=== PATIENT | male | born 1935 | race Caucasian/White ===

== ENCOUNTER 2017-03-05 19:55 | Inpatient (IN) ==
[2017-03-05] MEDS ORDERED: Ondansetron 4 MG/2 ML VIAL IVP ONE (20:21)
--- NOTE | 2017-03-05 20:21 | Emergency Department Note ---
Disposition Clinical Impression: Acute pancreatitis Qualifiers: Pancreatitis type: unspecified pancreatitis type Acute pancreatitis complication: unspecified Qualified Code(s): K85.90 - Acute pancreatitis without necrosis or infection, unspecified Disposition: Admitted As Inpatient Condition: Fair Time of Disposition: 22:40 General Adult HPI - General Chief complaint: ED Abdominal Pain Stated complaint: N/V Time Seen by Provider: 03/05/17 20:02 Source: EMS Mode of arrival: EMS Limitations: no limitations Nursing Notes Reviewed: Yes Vital Signs Reviewed: Yes - History of Present Illness HPI Narrative: Patient is an 81-year-old male who presents to [facility] ED with a chief complaint of nausea and vomiting for the last week. States he has been unable to keep down any food but he has been able to keep down water. He has never had anything like this in the past. Denies any pain in his abdomen. No shortness of breath or fevers. Denies any chest pain or difficulty breathing. [facility] work. They noted what looked like pneumobilia which could be more secondary to reflux of air from the small intestine as well as air-fluid levels throughout the small bowel without any transition point consistent with some ileus. He had a lipase elevated over 500. Lab work otherwise unremarkable there. Onset (ago): week(s) Pain Severity: mild Consistency: constant Improves with: nothing Worsens with: nothing Associated symptoms: Reports: denies other symptoms, nausea/vomiting. Denies: chest pain, cough, fever/chills, headaches, shortness of breath Treatments Prior to Arrival: none - Related Data Home Medications Medication Instructions Recorded Confirmed Aspirin Enteric Coated [Aspirin EC] 81 mg PO DAILY 03/05/17 03/05/17 Atorvastatin [Lipitor] 40 mg PO HS 03/05/17 03/05/17 Bisoprolol Fumarate 5 mg PO DAILY 03/05/17 03/05/17 Diltiazem HCl [Cardizem] 60 mg PO TID 03/05/17 03/05/17 Donepezil [Aricept] 10 mg PO HS 03/05/17 03/05/17 Kelp 1 each PO DAILY 03/05/17 03/05/17 Lisinopril [Zestril] 10 mg PO DAILY 03/05/17 03/05/17 Multivitamin-Min/Iron/FA/Vit K 1 each PO DAILY 03/05/17 03/05/17 [Multi-Day Plus Minerals Tablet] [place]-3/Dha/Epa/Fish Oil [Fish Oil 1,000 mg PO TID 03/05/17 03/05/17 1,000 mg Softgel] Allergies Allergy/AdvReac Type Severity Reaction Status Date / Time No Known Allergies Allergy Verified 03/05/17 19:59 All systems ED: reviewed and negative except as stated. Past Medical History - Past Medical History Attestation: Yes The following information was validated with the patient. Source: patient Medical history: Reports: atrial fibrillation, coronary artery disease, dementia , hypertension, renal disease Surgical history: Reports: coronary bypass (CABG) Physical Exam - General Limitations: no limitations General appearance: alert, in no apparent distress - Head Head exam: atraumatic, normocephalic, normal inspection - Eye Eye exam: Present: normal appearance, PERRL, EOMI - ENT ENT exam: normal exam, normal oropharynx, mucous membranes moist - Neck Neck exam: Present: normal inspection, full ROM, trachea midline - Chest Chest inspection: Present: normal inspection, symmetric chest wall rise - Respiratory Respiratory exam: Present: normal lung sounds bilaterally - Cardiovascular Cardiovascular exam: Present: regular rate, normal rhythm, normal heart sounds - Abdominal Exam Abdominal exam: Present: soft, Non-Tender, normal bowel sounds. Absent: tenderness, distention, guarding, rebound, rigidity - Extremities Exam Extremities exam: Present: normal inspection, full ROM. Absent: tenderness, pedal edema - Back Exam Back exam: Present: normal inspection, full ROM. Absent: tenderness - Neurological Exam Neurological exam: Present: alert - Psychiatric Psychiatric exam: Present: normal affect, normal mood - Skin Skin exam: Present: warm, dry, intact, normal color Course Course Narrative: Patient seen and examined. Labs and imaging were done at the [place]. I did get LFTs here which were normal as well as a lactic acid which was normal. Elevated Cr though he does have hx of CKD stage 3. Patient's physical exam is inconsistent with any bowel obstruction or acute cholecystitis. His abdomen is soft and nontender. Does not seem to have a surgical abdomen. With his elevated lipase , we will go ahead and admit for acute pancreatitis. I spoke with hospitalist Dr. Phillip who has accepted patient for admission. Vital Signs Temperature 97.7 F 03/05/17 19:59 Pulse Rate 78 03/05/17 19:59 Respiratory Rate 18 03/05/17 19:59 Blood Pressure 114/63 03/05/17 19:59 O2 Sat by Pulse Oximetry 98 03/05/17 19:59 Temperature 97.7 F 03/05/17 19:59 Pulse Rate 68 03/05/17 21:46 Respiratory Rate 16 03/05/17 22:26 Blood Pressure 116/56 03/05/17 22:26 O2 Sat by Pulse Oximetry 99 03/05/17 21:46 Oxygen Delivery Oxygen Delivery Room Air Medical Decision Making - Medical Records Medical records reviewed: Yes I reviewed the patient's medical records. - Lab Data Lab results reviewed: Yes I reviewed the patient's lab results. Lab Results 03/05/17 03/05/17 Range/Units 20:40 21:15 Lactic Acid 1.2 (0.5-2.2) mmol/L Total Bilirubin 0.7 (0.2-1.2) mg/dL Direct Bilirubin 0.4 (0.0-0.5) mg/dL Indirect Bilirubin 0.3 (0.0-1.2) mg/dL AST 24 (5-34) Units/L ALT 27 (0-55) Units/L Alkaline Phosphatase 82 (38-126) Units/L Serum Total Protein 6.3 (6.0-8.3) g/dL Albumin 2.8 L (3.5-5.0) g/dL Globulin 3.5 (2.4-3.5) g/dL Albumin/Globulin Ratio 0.8 L (1.1-2.2) - Radiology Data Radiology results reviewed: Yes I reviewed the patient's radiology results.
[2017-03-05 21:35] LABS: Albumin 2.8 g/dL (3.5-5.0); Albumin/Globulin Ratio 0.8 (1.1-2.2); Bilirubin,Direct 0.4 mg/dL (0.0-0.5); Bilirubin,Indirect 0.3 mg/dL (0.0-1.2); Bilirubin,Total 0.7 mg/dL (0.2-1.2); Globulin 3.5 g/dL (2.4-3.5); Total Protein 6.3 g/dL (6.0-8.3)
[2017-03-05] MEDS ORDERED: 0.9 % Sodium Chloride 1,000 ML IVC ONE (21:39)
--- NOTE | 2017-03-05 22:43 | Emergency Department Note ---
START Narrative - START START: I examined this patient and my medical decision-making was reviewed with the Resident Physician. I agree with the documented findings, disposition and treatment plan as described except to the extent set forth below. Patient in ED with nausea vomiting. Onset a week ago. He is a transfer from the [place] because they did a CT of his abdomen which showed possible pneumobilia and a bowel obstruction. On evaluation here the patient is nontoxic. He is observed ambulating with no difficulties. His abdomen is soft nontender. Plan. The CT was reviewed by us. There is no distended loops of bowel. His abdomen is nontender. We do not believe he has a bowel obstruction. He will be admitted to medicine for observation.
[2017-03-05] MEDS ORDERED: Ondansetron 4 MG/2 ML VIAL IVP PRN (22:44)
[2017-03-05] MEDS ORDERED: Naloxone 0.4 MG/ML INJ IVP PRN (22:44)
--- NOTE | 2017-03-05 23:13 | Internal Med History&Physical ---
<Gary Nicole - Last Filed: 03/05/17 23:07> Date of Encounter: 03/05/17 Time of Encounter: 23:07 Assessment and Plan (1) Viral gastroenteritis Current visit: Yes Status: Acute Nausea vomiting and diarrhea 6 days. The patient reports being unable to keep any food or fluids down. Additionally he is hypotensive and has what appears to be an SHARONA. Likely has a diagnosis of Viral gastroenteritis. He will be worked up for viral gastroenteritis rule out pancreatitis as he has a nonsuspicious elevation of lipase per the [facility]. Amylase, lipase, CMP with serum mg, phosphorus, UA Normal saline at 200 mL per hour 2 L Protonix IV push daily Continuous telemetry Continuous pulse ox (2) Nausea vomiting and diarrhea Current visit: Yes Status: Acute Nausea vomiting and diarrhea 6 days. Patient remained nauseous as of today and upon admission to the emergency department. Zofran was provided and nausea subsided. However he has not had any episodes of diarrhea today. We will continue to monitor for diarrhea and consider pharmacological intervention at that time. Patient is currently hemodynamically stable Zofran IV push every 8 hours when necessary for nausea and vomiting 0.9 normal saline at 200 mL per hour to replace volume loss CMP pending (3) Acute pancreatitis Current visit: Yes Status: Suspected Nausea vomiting and diarrhea 6 days. The Medical [facility] reports a lipase of over 500. However, at this time it is not verifiable as it was unable [facility]. Also of note, according to the patient's history it appears this may be more viral gastroenteritis and pancreatitis. Stat amylase, lipase, CMP mg and phosphorus, CBC with differential Mg in the a.m. Qualifiers: Pancreatitis type: unspecified pancreatitis type Acute pancreatitis complication: unspecified Qualified Code(s): K85.90 - Acute pancreatitis without necrosis or infection, unspecified (4) Hypovolemia dehydration Current visit: Yes Status: Acute Patient appears hypovolemic. Nausea and vomiting diarrhea 6 days. Blood pressure is intermittently systolically less than 100. Rehydrate and 0.9 normal saline at 200 mL per hour 2 L (5) SHARONA (acute kidney injury) Current visit: Yes Status: Acute Patient is a history of CK disease stage III. Current creatinine 4.39. Unknown baseline, however he likely has an AK due to hypovolemia from 6 days of nausea vomiting diarrhea as he is unable to keep down any food or fluids. Rehydrated with 0.9 normal saline at a rate of 200 mL an hour X 2l. Recheck metabolic panel tomorrow as there is one currently pending Hold all blood pressure meds were now Retroperitoneal ultrasound in the morning (6) DVT prophylaxis Current visit: Yes Status: Acute Patient is a high risk for DVT due to immobility throughout hospital stay. Plan to place on heparin subcutaneous 5000 units Q12 hours Internal Medicine - H&P: HPI Chief complaint: N/V/D x 6 days Admitted From: Home Plans for Post Hospital Care: Home History of present illness: Mr. Downing is a 81 year old male with a past medical history of carotid artery stenosis, atrial fibrillation, dementia, CK D stage III, coronary artery disease who presents to [facility] from [facility] with a 6 day complaint of nausea vomiting and diarrhea. The patient states that he was unable to keep any food down for the last week. Additionally, he admits that his decrease in his water intake to the nausea and failure of additional vomiting. Was seen at the [facility] dated imaging with CT revealing pneumobilia with air in the gallbladder lumen. Adrenal gland spleen, kidneys, and grimace and gallbladder were unremarkable. There is noted to be distended loops of small bowel with air-fluid levels. Lab work at the [facility] reveals an AK with a creatinine 4.39. No baseline [facility] found [facility]. The [facility] reported a lipase of over 500 however the paperwork that was sent with the patient did not have a result for lipase. Upon review of systems the patient denies fever chest pain, shortness of breath, abdominal pain. He admits to only nausea vomiting and diarrhea. He is being admitted to [facility] for further workup and evaluation Past Med Surg Social Fam HX - Past Medical History Medical history: atrial fibrillation, coronary artery disease, dementia, hypertension, renal disease Psychiatric history: no psych history - Past Surgical History Surgical History: coronary bypass (CABG) - Social History Smoking Status: Former smoker Smokeless Tobacco Status: No Alcohol use: rarely Drug use: none - Family History Father Race: Family Member Ethnicity: Non- Living Status: Age at : 57 Cause of : Thrombosis Internal Medicine - H&P: Meds Aspirin Enteric Coated [Aspirin EC] 81 mg PO DAILY 03/05/17 [History] Atorvastatin [Lipitor] 40 mg PO HS 03/05/17 [History] Bisoprolol Fumarate 5 mg PO DAILY 03/05/17 [History] Diltiazem HCl [Cardizem] 60 mg PO TID 03/05/17 [History] Donepezil [Aricept] 10 mg PO HS 03/05/17 [History] Kelp 1 each PO DAILY 03/05/17 [History] Lisinopril [Zestril] 10 mg PO DAILY 03/05/17 [History] Multivitamin-Min/Iron/FA/Vit K [Multi-Day Plus Minerals Tablet] 1 each PO DAILY 03/05/17 [History] [place]-3/Dha/Epa/Fish Oil [Fish Oil 1,000 mg Softgel] 1,000 mg PO TID 03/05/17 [ History] 3 Allergy/AdvReac Type Severity Reaction Status Date / Time No Known Allergies Allergy Verified 03/05/17 19:59 All Systems PM: A 10-system review of systems was performed and is negative for pertinent findings except as documented above in the HPI. - Constitutional Constitutional: fatigue, weakness, no chills, no excessive sweating, no fever(s) , no falls, no malaise, no night sweats Additional comments: Admits to weakness and fatigue since becoming ill - EENT Eyes: no change in vision, no discharge, no pain, no photophobia Ears: no ear discharge, no ear pain, no tinnitus Nose, mouth and throat: no dysphagia, no nasal discharge, no neck pain, no sore throat - Cardiovascular Cardiovascular ROS IM: no chest pain, no diaphoresis, no dyspnea, no lightheadedness, no palpitations, no syncope - Respiratory Respiratory: no cough, no dyspnea, no wheezing, no excessive phlegm production - Gastrointestinal Gastrointestinal: diarrhea, dyspepsia, nausea, vomiting, no abdominal pain, no belching, no early satiety, no excessive flatus, no hematemesis, no hematochezia , no melena - Musculoskeletal Musculoskeletal ROS IM: no numbness, no tingling - Integumentary Integumentary IM: no rash, no unusual bruising - Neurological Neurological ROS: no confusion, no convulsions, no focal weakness, no numbness, no tingling, no tremor(s) - Hematologic/Lymphatic Hematologic/Lymphatic: no easy bruising - Constitutional Vitals: Temp Pulse Resp BP Pulse Ox 97.7 F 68 16 116/56 99 03/05/17 19:59 03/05/17 21:46 03/05/17 22:26 03/05/17 22:26 03/05/17 21:46 General appearance: Present: cooperative, A&O X 3, pleasant, no acute distress, answers questions appropriately - Head Head exam: Present: atraumatic, normocephalic - Eye Eye exam: Present: PERRL, conjuntiva pink, sclera anicteric Pupils: Present: PERRL - Neck Neck exam general surgery: Present: supple, trachea midline. Absent: lymphadenopathy - Respiratory Respiratory exam: Present: CTAB. Absent: accessory muscle use, rales, rhonchi, wheezes - Cardiovascular Cardiovascular exam: Present: RRR, +S1, +S2. Absent: diastolic murmur, gallop, rubs, systolic murmur - GI/Abdominal GI/Abdominal exam: Present: normal bowel sounds, soft, no peritoneal signs. Absent: bruit, distended, firm, guarding, hepatomegaly, rebound, tenderness Additional comments: No tenderness noted upon exam exam, no Rafa sign, or Brooke Cates sign noted - Extremities Exam Extremities exam: Present: warm, radial pulses palpable and symmetrical. Absent : calf tenderness, cyanotic, pedal edema - Neurological Exam Neurological exam: Present: CN II-XII intact, oriented X3, no focal deficits. Absent: pronater drift, facial droop, speech deficit - Skin Skin exam: Present: dry, intact <Ducu,Hunter - Last Filed: 03/06/17 06:11> Date of Encounter: 03/05/17 Internal Medicine - H&P: HPI History of present illness: Mr. Downing is a 81 year old male All Systems PM: A 10-system review of systems was performed and is negative for pertinent findings except as documented above in the HPI. - Constitutional Vitals: Temp Pulse Resp BP Pulse Ox 97.8 F 94 19 97/58 96 03/06/17 04:58 03/06/17 04:58 03/06/17 04:58 03/06/17 04:58 03/06/17 04:58 Internal Med - H&P Results - Labs CBC & Chem 7: 03/06/17 00:18 03/06/17 00:18 Labs: Short CBC 03/06/17 Range/Units 00:18 WBC 11.2 H (4.3-11.1) K/mcL Hgb 13.0 (12.9-16.9) g/dL Hct 37.5 (37.5-50.1) % Plt Count 181 (140-400) K/mcL Neutrophils # 8.1 (1.6-8.9) K/mcL BMP 03/06/17 00:18 Sodium 132 L Potassium 4.2 Chloride 97 L Carbon Dioxide 26 BUN 87 H Creatinine 3.93 H Glucose 82 Calcium 8.1 L Liver Function 03/06/17 Range/Units 00:18 Total Bilirubin 0.6 (0.2-1.2) mg/dL AST 22 (5-34) Units/L ALT 25 (0-55) Units/L Alkaline Phosphatase 75 (38-126) Units/L Albumin 2.6 L (3.5-5.0) g/dL - Attending Attestation I examined this patient and my medical decision-making was reviewed with the Resident Physician, Dr. Raf Galeana. I agree with the documented findings, disposition and treatment plan as described except to the extent set forth below. I have independently obtained history and examined the patient and my findings are summarized below: [facility] vomiting diarrhea and elevated lipase. He appears clinically dry. Lungs are clear, heart is regular. Plan: IV fluid hydration, repeat amylase lipase and CMP stat. Avoid nephrotoxins. Hold blood pressure medications. Kidney ultrasound in the morning.
--- NOTE | 2017-03-05 23:45 | Event Note ---
Date of Encounter: 03/05/17 Time of Encounter: 23:42 I independently obtained history and examined this patient and my medical decision-making was reviewed with the nurse practitioner, Ryland Nicole. I agree with the documented findings, disposition and treatment plan as described. My findings are summarized below: Pt here for N+v and diarrhea Abd is soft, heart RRR Assessment and plan: Possible pancreatitis based on elevated lipase, nausea and vomiting, possible gastroenteritis and C. difficile infection Plan: IV fluids, IV Protonix, nothing by mouth. Singe GI panel stool sample, check amylase and lipase in the morning, abdominal ultrasound.
[2017-03-06 00:39] LABS: Basophils % 0.4 %; Eosinophils # 0.2 K/mcL (0.0-0.6); Eosinophils % 1.3 %; Hematocrit 37.5 % (37.5-50.1); Immature Granulocytes % 0.4 % (0-4); Lymphocytes # 1.7 K/mcL (0.6-4.6); Lymphocytes % 15.1 %; Mean Corpuscular HGB Conc 34.7 g/dL (31.6-35.5); Mean Corpuscular Hemoglobin 32.2 pg (28.0-33.3); Mean Corpuscular Volume 92.8 fL (83.0-100.0); Mean Platelet Volume 9.5 fL (9.4-12.4); Monocytes # 1.2 K/mcL (0.0-1.3); Monocytes % 10.9 %; Neutrophils # 8.1 K/mcL (1.6-8.9); Platelet Count 181 K/mcL (140-400); Red Blood Count 4.04 M/mcL (4.19-5.50); Red Cell Distribution Width 12.6 % (11.5-14.5); Segmented Neutrophils % 71.9 %
[2017-03-06 00:55] LABS: Albumin 2.6 g/dL (3.5-5.0); Albumin/Globulin Ratio 0.8 (1.1-2.2); Bilirubin,Total 0.6 mg/dL (0.2-1.2); Calcium 8.1 mg/dL (8.6-10.8); Globulin 3.3 g/dL (2.4-3.5); Magnesium 1.9 mg/dL (1.6-2.6); Potassium 4.2 mEq/L (3.5-4.5); Total Protein 5.9 g/dL (6.0-8.3)
[2017-03-06 01:11] LABS: Amylase 72 Units/L (25-125); Lipase 133 Units/L (8-78)
[2017-03-06] MEDS: 0.9 % Sodium Chloride 1,000 ML IVC SCH ×3 (01:46→14:28)
[2017-03-06] MEDS: *HR* Heparin 5,000 UNIT/ML VIAL SQ SCH ×2 (06:18→18:23)
[2017-03-06] MEDS: Aspirin Enteric Coated 81 MG Tablet PO SCH (09:09)
[2017-03-06] MEDS: dilTIAZem HCl 60 MG TABLET PO SCH ×3 (09:09→22:22)
[2017-03-06 09:14] LABS: Adenovirus F 40/41 PCR Not detected (Not detect); Astrovirus PCR Not detected (Not detect); C.difficile Toxin A/B by PCR Not detected (Not detect); Campylobacter by PCR Not detected (Not detect); Cryptosporidium by PCR Not detected (Not detect); Cyclospora cayetanensis PCR Not detected (Not detect); E. coli O157 by PCR Not detected (Not detect); Entamoeba histolytica PCR Not detected (Not detect); Enteroaggregative E.coli(EAEC) Not detected (Not detect); Enteropathogenic E.coli(EPEC) Not detected (Not detect); Enterotoxigenic E.coli (ETEC) Not detected (Not detect); Giardia lamblia PCR Not detected (Not detect); Norovirus GI/GII PCR Not detected (Not detect); Plesiomonas shigelloides PCR Not detected (Not detect); Rotavirus A PCR Not detected (Not detect); Salmonella PCR Not detected (Not detect); Shig/EnteroinvasiveE coli EIEC Not detected (Not detect); Shigalike tox-prod E coli STEC Not detected (Not detect); Vibrio PCR Not detected (Not detect); Vibrio cholerae PCR Not detected (Not detect); Yersinia enterocolitica PCR Not detected (Not detect)
[2017-03-06 09:15] LABS: Sapovirus PCR Not detected (Not detect)
--- NOTE | 2017-03-06 14:04 | Internal Med Progress Note ---
Date of Encounter: 03/06/17 Time of Encounter: 10:40 - Assessment and plan (1) SHARONA (acute kidney injury) Current Visit: Yes Status: Acute Assessment and plan: Acute renal failure. Likely from ATN due to prerenal hypovolemia. Continue IV hydration. Creatinine is 3.93 today. We will continue to monitor urine output. Avoid nephrotoxic agents. High-risk for complications. (2) Acute pancreatitis Current Visit: Yes Status: Suspected Assessment and plan: Lipase trending down. 133 today. Patient does not have any abdominal pain. Does not clinically appear to be having pancreatitis. Being treated symptomatically. Qualifiers: Pancreatitis type: unspecified pancreatitis type Acute pancreatitis complication: unspecified Qualified Code(s): K85.90 - Acute pancreatitis without necrosis or infection, unspecified (3) Viral gastroenteritis Current Visit: Yes Status: Acute Assessment and plan: Patient has not had any further episodes of nausea or vomiting. We will start patient on clear liquid diet and advance as tolerated. (4) DVT prophylaxis Current Visit: Yes Status: Acute Assessment and plan: With subcutaneous heparin (5) Essential hypertension Current Visit: Yes Status: Chronic Assessment and plan: Blood pressure on the lower side likely due to hypovolemia from persistent nausea and vomiting. Will hold antihypertensives for systolic blood pressure less than 100. - Subjective Interval history: Patient is awake and alert. Lying in bed and appears comfortable. Denies any new complaints at this time. Feels hungry. No new episodes of nausea or emesis. - Constitutional Vitals: Temp Pulse Resp BP Pulse Ox 97.5 F L 74 18 95/58 96 03/06/17 11:32 03/06/17 11:32 03/06/17 11:32 03/06/17 11:32 03/06/17 11:32 General appearance: Present: cooperative, A&O X 3, pleasant, no acute distress, answers questions appropriately - Neck Neck exam general surgery: Present: supple, trachea midline. Absent: lymphadenopathy - Respiratory Respiratory exam: Present: CTAB. Absent: accessory muscle use, rales, rhonchi, wheezes - Cardiovascular Cardiovascular exam: Present: RRR, +S1, +S2. Absent: diastolic murmur, gallop, rubs, systolic murmur - GI/Abdominal GI/Abdominal exam: Present: normal bowel sounds, soft, no peritoneal signs. Absent: distended, tenderness - Extremities Exam Extremities exam: Present: warm, radial pulses palpable and symmetrical. Absent : calf tenderness, cyanotic, pedal edema Internal Medicine: Result - Labs CBC & Chem 7: 03/06/17 00:18 03/06/17 00:18 Labs: Short CBC 03/06/17 Range/Units 00:18 WBC 11.2 H (4.3-11.1) K/mcL Hgb 13.0 (12.9-16.9) g/dL Hct 37.5 (37.5-50.1) % Plt Count 181 (140-400) K/mcL Neutrophils # 8.1 (1.6-8.9) K/mcL BMP 03/06/17 00:18 Sodium 132 L Potassium 4.2 Chloride 97 L Carbon Dioxide 26 BUN 87 H Creatinine 3.93 H Glucose 82 Calcium 8.1 L Liver Function 03/06/17 Range/Units 00:18 Total Bilirubin 0.6 (0.2-1.2) mg/dL AST 22 (5-34) Units/L ALT 25 (0-55) Units/L Alkaline Phosphatase 75 (38-126) Units/L Albumin 2.6 L (3.5-5.0) g/dL Consult Discharge Plan - Plan Referrals: [facility] [Outside]
[2017-03-07] MEDS: 0.9 % Sodium Chloride 1,000 ML IVC SCH ×3 (00:36→20:35)
[2017-03-07] MEDS: *HR* Heparin 5,000 UNIT/ML VIAL SQ SCH ×2 (06:40→17:10)
[2017-03-07 07:21] LABS: Basophils % 0.2 %; Eosinophils # 0.1 K/mcL (0.0-0.6); Eosinophils % 1.2 %; Hematocrit 36.7 % (37.5-50.1); Hemoglobin 12.4 g/dL (12.9-16.9); Immature Granulocytes % 0.4 % (0-4); Lymphocytes # 1.5 K/mcL (0.6-4.6); Lymphocytes % 15.5 %; Mean Corpuscular HGB Conc 33.8 g/dL (31.6-35.5); Mean Corpuscular Volume 94.8 fL (83.0-100.0); Mean Platelet Volume 9.7 fL (9.4-12.4); Monocytes # 1.3 K/mcL (0.0-1.3); Monocytes % 12.8 %; Neutrophils # 6.8 K/mcL (1.6-8.9); Platelet Count 181 K/mcL (140-400); Red Blood Count 3.87 M/mcL (4.19-5.50); Red Cell Distribution Width 13.1 % (11.5-14.5); Segmented Neutrophils % 69.9 %
[2017-03-07 07:28] LABS: Calcium 8.1 mg/dL (8.6-10.8); Potassium 4.5 mEq/L (3.5-4.5)
[2017-03-07] MEDS: dilTIAZem HCl 60 MG TABLET PO SCH ×3 (08:39→20:35)
[2017-03-07] MEDS: Aspirin Enteric Coated 81 MG Tablet PO SCH (08:39)
--- NOTE | 2017-03-07 12:39 | Internal Med Progress Note ---
Date of Encounter: 03/07/17 Time of Encounter: 09:45 - Assessment and plan (1) SHARONA (acute kidney injury) Current Visit: Yes Status: Acute Assessment and plan: Improving. Likely from ATN related to prerenal hypovolemia/acidemia from nausea and vomiting and diarrhea. Continue IV hydration. Creatinine is 2.64 today. Good urine output. If renal function continues to improve, will discharge patient tomorrow (2) Acute pancreatitis Current Visit: Yes Status: Resolved Assessment and plan: No abdominal pain. Tolerating diet well. Lipase has trended down. Qualifiers: Pancreatitis type: unspecified pancreatitis type Acute pancreatitis complication: unspecified Qualified Code(s): K85.90 - Acute pancreatitis without necrosis or infection, unspecified (3) Viral gastroenteritis Current Visit: Yes Status: Acute Assessment and plan: Improved. Patient no longer having abdominal pain nausea or vomiting. (4) DVT prophylaxis Current Visit: Yes Status: Acute (5) Essential hypertension Current Visit: Yes Status: Chronic Assessment and plan: Blood pressure is well controlled. - Subjective Interval history: Patient is doing better today. Does have some loose stools but decreased frequency. No abdominal pain nausea or vomiting. No dizziness or lightheadedness. - Constitutional Vitals: Temp Pulse Resp BP Pulse Ox 97.6 F 78 18 116/63 96 03/07/17 12:14 03/07/17 12:14 03/07/17 12:14 03/07/17 12:14 03/07/17 12:14 General appearance: Present: cooperative, A&O X 3, pleasant, no acute distress, answers questions appropriately - Neck Neck exam general surgery: Present: supple, trachea midline. Absent: lymphadenopathy - Respiratory Respiratory exam: Present: CTAB. Absent: accessory muscle use, rales, rhonchi, wheezes - Cardiovascular Cardiovascular exam: Present: RRR, +S1, +S2. Absent: diastolic murmur, gallop, rubs, systolic murmur - GI/Abdominal GI/Abdominal exam: Present: normal bowel sounds, soft, no peritoneal signs. Absent: distended, tenderness Internal Medicine: Result - Labs CBC & Chem 7: 03/07/17 06:28 03/07/17 06:28 Labs: Short CBC 03/07/17 Range/Units 06:28 WBC 9.8 (4.3-11.1) K/mcL Hgb 12.4 L (12.9-16.9) g/dL Hct 36.7 L (37.5-50.1) % Plt Count 181 (140-400) K/mcL Neutrophils # 6.8 (1.6-8.9) K/mcL BMP 03/07/17 06:28 Sodium 138 Potassium 4.5 Chloride 109 Carbon Dioxide 23 BUN 60 H D Creatinine 2.64 H Glucose 96 Calcium 8.1 L - VTE Documentation of Mechanical Device: Intermittent pneumatic compression device Consult Discharge Plan - Plan Referrals: [facility] [Outside]
[2017-03-08 05:06] LABS: Calcium 8.2 mg/dL (8.6-10.8); Potassium 4.5 mEq/L (3.5-4.5)
[2017-03-08] MEDS: *HR* Heparin 5,000 UNIT/ML VIAL SQ SCH (05:56)
[2017-03-08] MEDS: 0.9 % Sodium Chloride 1,000 ML IVC SCH (06:40)
[2017-03-08] MEDS: Aspirin Enteric Coated 81 MG Tablet PO SCH (09:08)
[2017-03-08] MEDS: dilTIAZem HCl 60 MG TABLET PO SCH (09:08)
[2017-03-08 11:34] VITALS: BP 142/68
--- NOTE | 2017-03-08 12:01 | Discharge Summary ---
Date of Encounter: 03/08/17 Time of Encounter: 11:59 - Discharge Diagnosis (1) SHARONA (acute kidney injury) Priority: Primary Status: Acute (2) Acute pancreatitis Priority: Secondary Status: Resolved Qualifiers: Pancreatitis type: unspecified pancreatitis type Acute pancreatitis complication: unspecified Qualified Code(s): K85.90 - Acute pancreatitis without necrosis or infection, unspecified (3) Viral gastroenteritis Priority: Secondary Status: Acute (4) DVT prophylaxis Priority: Secondary Status: Acute (5) Essential hypertension Priority: Secondary Status: Chronic - Discharge Medications Home Medications: Aspirin Enteric Coated [Aspirin EC] 81 mg PO DAILY 03/05/17 [History] Atorvastatin [Lipitor] 40 mg PO HS 03/05/17 [History] Bisoprolol Fumarate 5 mg PO DAILY 03/05/17 [History] Diltiazem HCl [Cardizem] 60 mg PO TID 03/05/17 [History] Donepezil [Aricept] 10 mg PO HS 03/05/17 [History] Kelp 1 each PO DAILY 03/05/17 [History] Multivitamin-Min/Iron/FA/Vit K [Multi-Day Plus Minerals Tablet] 1 each PO DAILY 03/05/17 [History] [place]-3/Dha/Epa/Fish Oil [Fish Oil 1,000 mg Softgel] 1,000 mg PO TID 03/05/17 [ History] Allergies/Adverse Reactions: 3 Allergy/AdvReac Type Severity Reaction Status Date / Time No Known Allergies Allergy Verified 03/05/17 19:59 Date of admission: 03/05/17 22:44 Primary care physician: PCP [facility] Consults: 03/06/17 00:46 Consult to Nutrition [CONS] Stat Comment: Consulting Provider: NUTRITION Reason for Dietary Consult: MST Score Discharging clinician: Michelle Treviño Anticipated date of discharge: 03/08/17 - Patient Status Disposition: Home, Self-Care Condition: Good Functional capacity at discharge: independent ambulation Overall status at discharge: patient is progressing back to baseline - Discharge Instructions Follow Up With: [facility] [Outside] (in 1 week The [facility] will call the patient at home with date and time of appt. Thank you) Additional Instructions: Hold lisinopril until you see your primary care provider - Diet and Activity Activity: increase activity as tolerated Diet: advance to your usual diet Hospital course: Mr. Downing is a 81 year old male patient with history of atrial fibrillation, dementia, chronic kidney disease stage III, coronary artery disease who was sent over to a hospital from the [facility] after presenting with 6 day history of nausea and vomiting and diarrhea. He was found to have acute kidney injury with severely elevated creatinine of 4.39. His lipase was reported to be greater than 500 for the phone call received but we could not confirm this year. On repeat check of lipase here, his levels were much lower. He was diagnosed with possible viral gastroenteritis. Treated with IV fluids. Initially kept nothing by mouth. His symptoms improved by next day and he was started on clear liquid diet and has been tolerating advancing diet since then. His renal function did improve with IV fluids. Today his creatinine is 2.2. He is now stable to be discharged home and will follow up with the [facility] clinic for further management. I am holding his lisinopril for now until he is evaluated by his primary care provider. - Time Spent with Patient Total time spent providing and/or coordinating discharge services: Less than 30 minutes (25 min) - Constitutional Vitals: Temp Pulse Resp BP Pulse Ox 98.1 F 95 16 142/68 95 03/08/17 11:13 03/08/17 11:13 03/08/17 11:13 03/08/17 11:13 03/08/17 11:13 General appearance: Present: cooperative, A&O X 3, pleasant, no acute distress, answers questions appropriately - Neck Neck exam general surgery: Present: supple, trachea midline. Absent: lymphadenopathy - Respiratory Respiratory exam: Present: CTAB. Absent: accessory muscle use, rales, rhonchi, wheezes - Cardiovascular Cardiovascular exam: Present: RRR, +S1, +S2. Absent: diastolic murmur, gallop, rubs, systolic murmur - GI/Abdominal GI/Abdominal exam: Present: normal bowel sounds, soft, no peritoneal signs. Absent: distended, tenderness - VTE Documentation of Mechanical Device: Intermittent pneumatic compression device
== END 2017-03-08 13:10 | disposition home or self-care (01) | DRG 682 ==
LOC: 3ANU 19:55 → EMEROO 19:55 → 3ANU 22:56
PROVIDERS: ADMIT Internal Medicine; ATTEND Internal Medicine